=== PATIENT | male | born 1975 | race Caucasian/White ===

== ENCOUNTER 2016-11-16 10:03 | Emergency (ER) | payer OTHER ==
[2016-11-16 10:18] VITALS: BP 114/79; PULSE 87; TEMP 98.7; BMI 21.9
[2016-11-16] MEDS ORDERED: ACETAMINOPHEN 325 MG TABLET (FP) PO ONE (10:41)
[2016-11-16] MEDS ORDERED: ALBUTEROL SO4 0.083% IH SOL 2.5 MG/3 ML VIAL.NEB. NEB ONE ×3 (10:41→10:47)
[2016-11-16] MEDS ORDERED: ACETAMINOPHEN 325 MG TABLET (FP) ONE (10:45)
--- NOTE | 2016-11-16 10:57 | PDOC ---
History of Present Illness - General Chief Complaint: Cold Symptoms Stated Complaint: COLD SYMPTOMS Time Seen by Provider: 11/16/16 10:31 History Source: Patient Exam Limitations: No Limitations - History of Present Illness Initial Comments: 11/16/16 10:55 41 yr male history of HTN, " heart condition" presents with cough and sore throat for 2 days. Pt's and son had same symptoms that have since improved. Pt denies chest pain or shortness of breath. no fever no chills, no meds taken today. Past History - Past Medical History Allergies/Adverse Reactions: Allergies Allergy/AdvReac Type Severity Reaction Status Date / Time No Known Allergies Allergy Verified 11/16/16 10:14 Home Medications: Ambulatory Orders NK [No Known Home Medication] 11/16/16 Cardiac Disorders: Yes (ENLARGED HEART) - Surgical History Abdominal Surgery: No - Family Disease History Family Disease History: Heart Disease: Father (htn) - Psycho/Social/Smoking Cessation Hx Anxiety: No Suicidal Ideation: No Smoking Status: No Smoking History: Never smoked Have you smoked in the past 12 months: No Number of Cigarettes Smoked Daily: 0 Information on smoking cessation initiated: No Hx Alcohol Use: No Drug/Substance Use Hx: No Substance Use Type: None Hx Substance Use Treatment: No *Physical Exam - Vital Signs Last Vital Signs Temp Pulse Resp BP Pulse Ox 98.7 F 87 18 114/79 100 11/16/16 10:15 11/16/16 10:15 11/16/16 10:15 11/16/16 10:15 11/16/16 10:15 - Physical Exam General Appearance: Yes: Nourished, Appropriately Dressed HEENT: positive: EOMI, SUE, TMs Normal, Pharynx Normal Neck: positive: Supple Respiratory/Chest: positive: Lungs Clear, Normal Breath Sounds. negative: Crackles, Rales, Rhonchi, Stridor, Wheezing Cardiovascular: positive: Regular Rhythm, Regular Rate Gastrointestinal/Abdominal: positive: Normal Bowel Sounds, Soft Heart Score/ECG Review - History History: Slightly suspicious (ekg unchanged from previous EKG signed by in ER) - ECG Intrepretation Rhythm: Regular Rhythm Medical Decision Making - Medical Decision Making 11/16/16 12:08 cc: cough sore throat, family members with same symptoms afebrile non toxic pt has history of "bad heart" does not know names of medications pt states he has chest pain on and off for months last saw his [facility] lead one month ago pt states no changes today, has intermittent chest pain will do EKG , albuterol for cough , tylenol for headache EKG unchanged from prior confirmed with Neyda Gonzales in ER discussed findings with pt and his son who is fluent in [place] pt to follow with his pmd this week *DC/Admit/Observation/Transfer Diagnosis at time of Disposition: Upper respiratory infection Qualifiers: URI type: unspecified URI Qualified Code(s): J06.9 - Acute upper respiratory infection, unspecified - Discharge Dispostion Disposition: HOME Condition at time of disposition: Good - Referrals Referrals: Glenyn French [Primary Care Provider] - - Patient Instructions Additional Instructions: follow with your doctor Thursday or thursday drink pleanty of fluids at home take tylenol 650mg every 4-6hrs for pain or fever increase vitamin c and zinc in your diet to help with immunity return to ER for any worsening symptoms
--- NOTE | 2016-11-17 13:58 | EKG ---
Test Reason : Blood Pressure : / mmHG Vent. Rate : 071 BPM Atrial Rate : 071 BPM P-R Int : 154 ms QRS Dur : 152 ms QT Int : 412 ms P-R-T Axes : 081 117 040 degrees QTc Int : 447 ms NORMAL SINUS RHYTHM BIATRIAL ENLARGEMENT RIGHT BUNDLE BRANCH BLOCK LEFT POSTERIOR FASCICULAR BLOCK BIFASCICULAR BLOCK ABNORMAL ECG WHEN COMPARED WITH ECG OF 08-OCT-2015 10:36, NO SIGNIFICANT CHANGE WAS FOUND Confirmed by MERCY VICK MD ([id number]) on 11/17/2016 1:58:22 PM Referred By: SUBHASH Confirmed By:MERCY VICK MD
== END 2016-11-16 12:23 | disposition home or self-care (01) ==
LOC: JERFT 10:03
PROC: 3E0F7GC Introduction of Other Therapeutic Substance into Respiratory Tract, Via Natural or Artificial Opening (ICD-10-PCS; principal; 2016-11-16)
DX: J06.9 Acute upper respiratory infection, unspecified (principal); B97.89 Other viral agents as the cause of diseases classified elsewhere
CPT/HCPCS: 93005; 93010; 94640; 99281-25

== ENCOUNTER 2018-06-15 09:50 | Emergency (ER) | payer OTHER ==
[2018-06-15 10:03] VITALS: BP 112/70; PULSE 55; TEMP 97.5; BMI 23.6
--- NOTE | 2018-06-15 10:26 | PDOC ---
History of Present Illness - General Chief Complaint: Pain, Acute Stated Complaint: LUMP ON LT. HAND Time Seen by Provider: 06/15/18 10:07 History Source: Patient Exam Limitations: Clinical Condition - History of Present Illness Initial Comments: 06/15/18 10:21 Patient with no significant past medical history present with complaint of swelling and lump to posterior left wrist which has been persistent for 6 months patient reported lump started at left shoulder now moved down to the hand. Patient was seen [facility] a month ago for symptoms and sent to orthopedics hand but patient reported orthopedist did not take his insurance. Patient also reported 3 weeks history of right shoulder pain which has been intermittent with locking sensation of right shoulder. 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 Denies numbness or tingling sensation. Denies weakness to right shoulder. Timing/Duration: other (6 months) Past History - Past Medical History Allergies/Adverse Reactions: Allergies Allergy/AdvReac Type Severity Reaction Status Date / Time No Known Allergies Allergy Verified 06/15/18 09:59 Home Medications: Ambulatory Orders Naproxen 500 mg PO BID PRN #20 tablet 06/15/18 Cardiac Disorders: Yes (ENLARGED HEART) COPD: No - Surgical History Abdominal Surgery: No - Family Disease History Family Disease History: Heart Disease: Father (htn) - Immunization History Immunization Up to Date: Yes - Suicide/Smoking/Psychosocial Hx Smoking Status: No Smoking History: Never smoked Have you smoked in the past 12 months: No Number of Cigarettes Smoked Daily: 0 Hx Alcohol Use: No Drug/Substance Use Hx: No Substance Use Type: None Hx Substance Use Treatment: No Review of Systems - Review of Systems Able to Perform ROS?: Yes Is the patient limited Gabonese proficient: No Constitutional: No: Weakness HEENTM: No: Symptoms Reported Respiratory: No: Symptoms reported Cardiac (ROS): No: Symptoms Reported ABD/GI: No: Symptoms Reported : No: Symptoms Reported Musculoskeletal: Yes: See HPI, Joint Pain (right shoulder), Muscle Pain (right shoulder and posteroior left wrist) Integumentary: Yes: Lumps (posterior left wrist). No: Erythema Neurological: No: Numbness, Paresthesia, Tingling All Other Systems: Reviewed and Negative *Physical Exam - Vital Signs Last Vital Signs Temp Pulse Resp BP Pulse Ox 97.5 F L 55 L 18 112/70 100 06/15/18 10:00 06/15/18 10:00 06/15/18 10:00 06/15/18 10:00 06/15/18 10:00 - Physical Exam Comments: 06/15/18 10:26 GENERAL: Well developed, well nourished. Awake and alert. No acute distress. CARDIOVASCULAR: Regular rate and rhythm. No murmurs, rubs, or gallops. PULMONARY: No evidence of respiratory distress. MUSCULOSKELETAL : mild tenderness over dorsal aspect of left wrist with 2 cm had fluctuant lump over left wrist consistent with ganglion cyst. Mild tenderness over lateral deltoid muscle of right shoulder which is worse with flexion and extension of right upper arm against resistance. Free range of motion of right upper extremity. 5 out of 5 muscle strength right upper extremity No bony deformities SKIN: Warm and dry. Normal capillary refill. 2 cm ganglion cyst to dorsal aspect of left wrist NEUROLOGICAL: Alert, awake, appropriate. No motor deficits in the lower extremities. Gait is normal without ataxia. PSYCHIATRIC: Cooperative. Good eye contact. Appropriate mood and affect. General Appearance: Yes: Nourished, Appropriately Dressed. No: Apparent Distress ED Treatment Course - RADIOLOGY Radiology Studies Ordered: Category Date Time Status SHOULDER-RIGHT [RAD] Stat Radiology 06/15/18 10:18 Ordered WRIST W/HAND-LEFT* [RAD] Stat Radiology 06/15/18 10:18 Ordered Medical Decision Making - Medical Decision Making 06/15/18 10:23 Patient with no significant past medical history present with complaint of swelling and lump to posterior left wrist which has been persistent for 6 months patient reported lump started at left shoulder now moved down to the hand. Patient was seen [facility] a month ago for symptoms and sent to orthopedics hand but patient reported orthopedist did not take his insurance. Patient also reported 3 weeks history of right shoulder pain which has been intermittent with locking sensation of right shoulder. 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 Denies numbness or tingling sensation. Denies weakness to right shoulder. Exam significant for 3 cm hard fluctuant lump to dorsal aspect of left wrist which is immobile with mild tenderness over lump. No erythema or swelling to rest of hand or wrist area. Mild tenderness over lateral deltoid muscle of right shoulder which is worse with elevation of right upper arm. 5 out of 5 muscle strength right upper extremity. No crepitus to right shoulder. Symptoms of hand likely ganglion cyst. Right shoulder pain likely shoulder strain versus rotator cuff injury and x-ray of left hand and right shoulder ordered. Treat based on imaging results 06/15/18 11:16 x-ray of left wrist shows lump on wrist which was noted on exam with no other acute findings. x-ray of right shoulder shows arthritis changes of right shoulder with no acute pathology. Patient will be discharge on naproxen with orthopedics hand follow-up *DC/Admit/Observation/Transfer Diagnosis at time of Disposition: Ganglion cyst of dorsum of left wrist Shoulder pain Qualifiers: Chronicity: chronic Laterality: right Qualified Code(s): M25.511 - Pain in right shoulder; G89.29 - Other chronic pain - Discharge Dispostion Disposition: HOME Condition at time of disposition: Stable Decision to Admit order: No - Prescriptions Prescriptions: Naproxen 500 mg PO BID PRN #20 tablet PRN Reason: pain - Referrals Referrals: Lupillo Mcclellan MD [Staff Physician] - Rico Thurman MD [Staff Physician] - - Patient Instructions Printed Discharge Instructions: DI Ganglion Cyst Additional Instructions: Take prescribed medication as needed for pain. Follow-up with referred orthopedics with either Dr. Thurman or Dr. Mcclellan for lump on hand - Post Discharge Activity
== END 2018-06-15 12:01 | disposition home or self-care (01) ==
LOC: JERFT 09:50
DX: M67.432 Ganglion, left wrist (principal); M25.512 Pain in left shoulder; G89.29 Other chronic pain
CPT/HCPCS: 73030-TC-RT-FY; 73110-TC-LT-FY; 73130-TC-LT-FY; 99281-25